=== PATIENT | male | born 1960 | race Caucasian/White ===

== ENCOUNTER → 2018-09-06 | Outpatient (CLI) | payer OTHER ==
[~2018-09-06] VITALS: Ht 180.3 cm; Wt 70.8 kg
[~2018-09-06] MED LIST: ALEVE PM CAPLE1 EACH PO
[2018-09-06 14:03] VITALS: BP 120/72
== END ==
LOC: PAIN 07:08
DX: M54.5 Low back pain (principal); M79.605 Pain in left leg; M79.604 Pain in right leg; F32.9 Major depressive disorder, single episode, unspecified

== ENCOUNTER → 2018-09-12 | Outpatient (CLI) | payer OTHER ==
[~2018-09-12] VITALS: Ht 175.3 cm; Wt 73.3 kg
[~2018-09-12] MED LIST changes: +DICLOFENAC POTA50 MG PO; +TIZANIDINE HCL4 MG PO
--- NOTE | ~2018-09-12 | HPC ---
[facility] [place] [address] PAIN MANAGEMENT CONSULTATION Name: SUSAN MYRICK [id number] Admission: 09/12/18 Attend Phys: Edmond Moreno DO Discharge: Date of : 56 Report #: [id number] THIS REPORT FOR: //name// CC: Edmond Moreno Referring Physician Flip Merritt DATE OF SERVICE: 09/12/2018 CHIEF COMPLAINT: Chronic neck pain, bilateral low back pain, bilateral lower extremity pain and paresthesias. HISTORY OF PRESENT ILLNESS: As you know, the patient is a 57-year-old male who was referred to our service for chronic low back pain, bilateral lower extremity pain, which he has been determined to be due to severe spinal stenosis at the L4-L5 level. He has hyperreflexive reflexes at the patella, appeared to be normal at the Achilles. He was also complaining of neck pain for which the patient underwent MRI of the cervical spine per his request from our last visit. He returns today in followup visit stating pain level of 4/10. Indicates pain is exacerbated with sitting and standing for any length of time, improves with movement, medications and repositioning. He describes the pain as pulling, aching, sharp and stabbing when describing pain. He returns today, reviewed the MRI of the cervical spine, discussed potential treatment options. ALLERGIES: METOCLOPRAMIDE. CURRENT MEDICATIONS: Tizanidine, diclofenac, naproxen. SOCIAL HISTORY: The patient is a nonsmoker. Denies IV or illicit drug use. Denies any chronic alcohol use. He is retired. He is unaccompanied today. IMAGING: MRI of the cervical spine obtained on 09/07/2018 shows C2-C3 unremarkable. C3-C4 unremarkable. C4-C5 shows left facet hypertrophy. No significant central canal stenosis. No significant right, moderate left neural foraminal narrowing. C5-C6, right paracentral posterior disk osteophyte complex, slightly effacing the right lateral recess, resulting in moderate central canal stenosis with central canal measuring 8.9 mm, mild bilateral neural foraminal narrowing. C6-C7, normal. C7-T1, normal. PQRS: The patient has osteoarthritis of the cervical spine, osteoarthritis of the lumbar spine, bilateral hips and knees. No rheumatoid arthritis. He is placing current pain score 4/10. He is not a fall risk, has not had a fall in the last 3 months. He is on blood thinners. He is treated for hypertension. He is not on opioids. He is a low risk for opioid addiction potential. His functional assessment pain impact score is 31/70. [address] [address] PAIN MANAGEMENT CONSULTATION Name: SUSAN MYRICK Rebeca [facility] [id number] Admission: 09/12/18 Attend Phys: Edmond Moreno DO Discharge: Date of : 56 Report #: [id number] PHYSICAL EXAMINATION: VITAL SIGNS: Blood pressure 131/80, pulse 76, respiratory rate 16 and unlabored. The patient is 100% on room air. Height 5 feet 9 inches tall, weight 161.6 pounds, BMI calculated 23.9. GENERAL: Well-developed, well-nourished, well-hydrated 57-year-old male. He appears his stated age. He is placing current pain score 4/10. HEENT: Normocephalic, atraumatic. Pupils equal, round, reactive to light. Extraocular muscles are intact. Sclerae nonicteric without injection. NEUROLOGIC: Cranial nerves 2-12 grossly intact. Speech is fluent. EXTREMITIES: Show no clubbing, no cyanosis, and no edema. MUSCULOSKELETAL: The patient has equal and symmetrical lower extremity strength 5/5, intact to light touch from L1 through S2 dermatomes. Seated straight leg raising negative. Supine straight leg raising positive. Shaheen's test negative. Modified Gaenslen's positive for axial low back pain. Deep tendon reflexes are hyperreflexive at patella bilaterally and normal at Achilles. There is palpatory tenderness over the paraspinal musculature of cervical spine, no spinous process tenderness. Upper extremity strength is symmetrical 5/5, intact to light touch from C5-T1 dermatomes. Muscle bulk and tone equal and symmetrical when comparing left lower extremity to right. Spurling's test is equivocal. Cervical provocation testing is met with increasing pain, right greater than left. ASSESSMENT: 1. Symptomatic lumbar radiculopathy. 2. Severe central canal stenosis of lumbar spine. 3. Displacement of lumbar intervertebral disk with radiculopathy. 4. Neural foraminal stenosis of the lumbar spine. 5. Lumbosacral spondylosis with radiculopathy. 6. Lumbar degeneration. 7. Chronic neck pain. 8. Cervical spondylosis without radicular symptoms. 9. Displacement of intervertebral cervical disk. 10. Moderate central canal stenosis of the cervical spine. 11. Chronic intractable pain. PLAN: 1. The patient returns today in followup visit where we have reviewed his recent cervical MRI in its entirety. It shows some minor changes at C4-C5 level with no significant central canal stenosis, only moderate left neural foraminal narrowing. There was noted at C5-C6, moderate central canal stenosis due to paracentral disk osteophyte complex with compression of the canal to 8.9 mm. The patient and I discussed the findings today, the fact that he has no radicular component in the upper extremities would indicate that the findings are not compressive enough to cause significant neuropathy based on our physical exam. His muscle bulk and tone, his deep tendon reflexes in the upper extremity are normal. The majority of the patient's pain is axial around the cervical [facility] [address] [place] [address] PAIN MANAGEMENT CONSULTATION Name: SUSAN MYRICK Rebeca Room #: REG KENDRA Seay#: [id number] Admission: 09/12/18 Attend Phys: Edmond Moreno DO Discharge: Date of : 56 Report #: [id number] region, which would correlate more to the arthritic changes noted at C4-C5, C5-C6, which is fairly typical for a male of 57 years of age. We discussed this with the patient today, treatment options were advised and the patient chose to begin with medications. 2. The patient and I did discuss again today the findings of his MRI of the lumbar spine, which is quite concerning and showing severe central canal stenosis at 4-5 level, that I believe is contributing significantly to the hyperreflexic patellar reflexes and his ongoing pain and increasing disability. We recommend strongly the patient look towards interventional treatment such as epidural injections, spinal cord stimulator and possible surgical options. The patient wishes to remain conservative with medication management. We did offer to the patient an epidural injection today, he chose only to utilize medications. 3. The patient will be started on diclofenac potassium 50 mg dose 1 tab p.o. t.i.d. I have given the patient #90 tablets, 2 refills. I advised the patient to watch for side effects of dyspepsia, worsening blood pressure and lower extremity edema. If he notes any of these side effects, discontinue immediately. If this medication is too costly, naproxen sodium would be the second choice at 500 mg t.i.d. The patient will begin the medication, contact our clinic if he has any questions or concerns. 4. We will be available to see the patient back in followup visit for a lumbar epidural injection under fluoroscopic guidance to address lumbar radicular symptoms. We would also be available if the patient does wish to look towards surgical options to address his severe central canal stenosis at the 4-5 level and potentially improving his overall balance and leg function. If he wishes to look towards treatment options for cervical region, we can certainly talk about those in followup visit. By: [id number] Edmond Moreno DO /nt
[2018-09-12 13:17] VITALS: BP 131/80
== END ==
LOC: PAIN 07:27
DX: M79.661 Pain in right lower leg (principal); M79.662 Pain in left lower leg; M51.36 Other intervertebral disc degeneration, lumbar region; M54.16 Radiculopathy, lumbar region; M48.02 Spinal stenosis, cervical region; M54.2 Cervicalgia; G89.4 Chronic pain syndrome